=== PATIENT | female | born 1955 | race Two or more races ===

== ENCOUNTER 2024-03-08 10:25 | Emergency (ER) | payer OTHER, MEDICAID ==
[~2024-03-08] VITALS: Ht 157.5 cm; Wt 70.3 kg
[2024-03-08 10:44] VITALS: BP 122/92; RESP 18; O2SAT 96
[2024-03-08] MEDS ORDERED: MORPHINE SULFATE INJ 2 MG/ml SYRG IM ONE (11:30)
[2024-03-08] MEDS ORDERED: ONDANSETRON HCL 4 MG/2 ML VIAL IM ONE (11:30)
[2024-03-08 12:13] VITALS: PULSE 109
--- NOTE | 2024-03-08 12:13 | ED.PDOC ---
History of Present Illness HPI Comments 69 y/o F, with a Hx of metastatic stage IV lung CA, HLD, polypectomy in large and small intestine, and former tobacco use, presents with son for c/o nausea and vomiting and left shoulder pain for the past 3x days, today. Patient endorses on persisting symptoms since initial unprovoked onset. She admits to lilia hale to the ED for same symptoms, yesterday, and endorses on no improvement with Tx administered then. She further informs on completing her most recent chemotherapy and radiation Tx for her CA that has no traveled to her neck and left hip. She denies having any additional symptoms or modifiers at this time. Chief Complaint: Nausea/Vomiting Time Seen by MD: 11:15 Reviewed Notes: Nurses Notes, Medications, Allergies Allergies: Coded Allergies: NO KNOWN ALLERGIES (Unverified , 03/08/24) Information Source: Patient Mode of Arrival: Ambulatory Severity: Moderate Timing: Hours Duration: Since onset Prehospital treatment: None Past Medical History PAST MEDICAL HISTORY: Denies Surgical History: Denies all surgeries MERCHANT MILLER History: Denies all MERCHANT MILLER Hx Family History Family History: Unknown Social History Smoker: Non-Smoker Alcohol: Denies ETOH Use Drugs: Denies Drug Use Lives In: Home Constitutional: denies: chills, diaphoresis, fatigue, fever, malaise, sweats, weakness, others EENTM: denies: blurred vision, double vision, ear bleeding, ear discharge, ear drainage, ear pain, ear ringing, eye pain, eye redness, hearing loss, mouth pain, mouth swelling, nasal discharge, nose bleeding, nose congestion, nose pain, photophobia, tearing, throat pain, throat swelling, voice changes, others Respiratory: denies: cough, hemoptysis, orthopnea, SOB at rest, shortness of breath, SOB with excertion, stridor, wheezing, others Cardiovascular: denies: chest pain, dizzy spells, diaphoresis, Dyspnea on exertion, edema, irregular heart beat, left arm pain, lightheadedness, palpitations, PND, syncope, others Gastrointestinal: reports: nausea, vomiting; denies: abdomen distended, abdominal pain, blood streaked bowels, constipated, diarrhea, dysphagia, difficulty swallowing, hematemesis, melena, poor appetite, poor fluid intake, rectal bleeding, rectal pain, others Genitourinary: denies: abnormal vagina bleeding, burning, dyspareunia, dysuria, flank pain, frequency, hematuria, incontinence, pain, , vagina discharge, urgency, others Neurological: denies: dizziness, fainting, headache, left sided numbness, left sided weakness, numbness, paresthesia, pre-existing deficit, right sided numbness, right sided weakness, seizure, speech problems, tingling, tremors, weakness, others Musculoskeletal: reports: others (left shoulder pain ); denies: back pain, gout, joint pain, joint swelling, muscle pain, muscle stiffness, neck pain Integumetry: denies: bruises, change in color, change in hair/nails, dryness, laceration, lesions, lumps, rash, wounds, others Allergic/Immunocompromised: denies: Difficulty Healing, Frequent Infections, Hives, Itching, others Hematologic/Lymphatic: denies: anemia, blood clots, easy bleeding, easy bruising, swollen glands, others Endocrine: denies: excessive hunger, excessive sweating, excessive thirst, excessive urination, flushing, intolerance to cold, intolerance to heat, unexplained weight gain, unexplained weight loss, others Psychiatric: denies: anxiety, bipolar disorder, depression, hopeless, panic d isorder, schizophrenia, sleepless, suicidal, others All Other Systems: Reviewed and Negative Physical Exam General Appearance: Mild Distress HEENT: Normal ENT Inspection, Pharynx Normal, TMs Normal Neck: Full Range of Motion, Non-Tender, Normal, Normal Inspection Respiratory: Chest Non-Tender, Lungs Clear, No Accessory Muscle Use, No Respiratory Distress, Normal Breath Sounds Cardiovascular: No Edema, No JVD, No Murmur, No Gallop, Normal Peripheral Pulses, Regular Rate/Rhythm Breast Exam: Deferred Gastrointestinal: No Organomegaly, Non Tender, No Pulsatile Mass, Normal Bowel Sounds, Soft Genitalia: Deferred Pelvic: Deferred Rectal: Deferred Extremities: No calf tenderness, Normal capillary refill, Normal inspection, Normal range of motion, Non-tender, No pedal edema Musculoskeletal : Apperance: Normal Neurologic: Alert, district commercial superintendent II-XII nml as Tested, No Motor Deficits, Normal Affect, Normal Mood, No Sensory Deficits Cerebellar Function: Normal Reflexes: Normal Skin: Dry, Normal Color, Warm Lymphatic: No Adenopathy Was a procedure done? Was a procedure done?: No EKG EKG : Pulse Rate (adult): [address]: Normal Cardiac Rhythm: ST Block: None Hypertrophy: None ST: Normal Differential Dx Considerations may include: medication adverse reaction, gastritis, gastroenteritis, viral syndrome, spoiled food, acute abdomen X-Ray, Labs, Meds, VS Vital Signs Date Time Temp Pulse Resp B/P (MAP) Pulse Ox O2 Delivery O2 Flow Rate FiO2 03/08/24 12:13 109 03/08/24 10:50 109 03/08/24 10:44 98.0 97 18 122/92 (102) 96 While in the emergency department's the patient's seems somewhat nauseated. We went ahead and order some lab work as well as medication for the patient but she has eloped from the department's. Time of 1ST Reevaluation: 11:45 Reevaluation 1ST: Unchanged Patient Education/Counseling: Diagnosis, Treatment, Prognosis Family Education/Counseling: Diagnosis, Treatment, Prognosis Departure 1 Departure Time of Disposition: 13:04 Impression: Primary Impression: Chronic pain Qualified Codes: G89.3 - Neoplasm related pain (acute) (chronic) Additional Impressions: Metastatic cancer Qualified Codes: C79.51 - Secondary malignant neoplasm of bone Vomiting Qualified Codes: R11.14 - Bilious vomiting Disposition: 07 LEFT AWOL/ELOPED Condition: Fair Critical Care Note Critical Care Time?: No Stability Stability form required: No Heart Score Heart Score: Heart Score Response (Comments) Value History N/A 0 EKG N/A 0 Age N/A 0 Risk Factors N/A 0 Troponin N/A 0 Total 0 I personally scribed for RODY LAYTON MD ([email or web address]) on 03/08/24 at 12:13. Electronically submitted by Hilario Huang [email or web address]). RODY LAYTON MD Mar 08, 2024 12:13
--- NOTE | 2024-03-09 10:51 | ECG ---
[facility] Test Date: 2024-03-08 Test Time: 10:50:41 Pat Name: ELIAS HOWARD Department: ER Room: Gender: F Global Cto: JOSE CRUZ : 1955 Requested By: RODY LAYTON Order Number: [id number] Reading MD: Mayank Shirley Measurements Intervals Peridot Rate: 109 P: 72 HI: 149 QRS: 57 QRSD: 75 T: 53 QT: 308 QTc: 415 Interpretive Statements Sinus tachycardia Minimal ST depression, diffuse leads Electronically Signed On 03-09-2024 13:09:19 PST by Mayank Shirley Please click the below link to view image of tracing.
== END 2024-03-08 12:43 | disposition left against medical advice (07) ==
LOC: ER 10:25
DX: C76.8 Malignant neoplasm of other specified ill-defined sites (principal); G89.3 Neoplasm related pain (acute) (chronic); C79.89 Secondary malignant neoplasm of other specified sites; R11.10 Vomiting, unspecified
CPT/HCPCS: 93005

== ENCOUNTER → 2024-06-21 | Outpatient (CLI) | payer MEDICAID ==
[2024-06-21 08:00] LABS: Basophils # (auto) 0 10 ^3/uL (0-0.2); Eosinophils # (auto) 0.1 10 ^3/uL (0-0.8); Eosinophils % (auto) 2.1 % (0.0-7.0); Hematocrit 35.6 % (36.0-46.0); Hemoglobin 12.1 g/dL (12.2-16.2); Lymphocytes # (auto) 0.4 10 ^3/uL (0.4-5.4); Lymphocytes % (auto) 11.3 % (10.0-50.0); Mean Corpuscular Hemoglobin 32.1 pg (28.0-32.0); Mean Corpuscular Volume 94.3 fL (80.0-100.0); Monocytes # (auto) 0.3 10 ^3/uL (0-1.3); Monocytes % (auto) 8.3 % (0.0-12.0); Neutrophils # (auto) 2.5 10 ^3/uL (1.6-8.6); Neutrophils % (auto) 77.3 % (37.0-80.0); Platelet Count (auto) 171 10^3/uL (140-450); Red Blood Cells 3.78 10^6/uL (4.0-5.20); Red Cell Distribution Width 14.7 % (11.8-14.3); White Blood Cell 3.2 10^3/uL (4.4-10.8)
[2024-06-21 08:33] LABS: Alanine Aminotransferase 11 U/L (7-40); Albumin 4.5 g/dL (3.2-4.8); Alkaline Phosphatase 89 U/L (46-116); Anion Gap 9 (5-15); BUN/Creatinine Ratio 16.5 (10.0-20.0); Bilirubin, Total 0.5 mg/dL (0.2-1.0); Blood Urea Nitrogen 13 mg/dL (9-23); Calcium 10.3 mg/dL (8.7-10.4); Carbon Dioxide 26 mmol/L (20-31); Potassium 4.4 mmol/L (3.5-5.1); Sodium 143 mmol/L (136-145); Total Protein 6.9 g/dL (5.7-8.2)
[2024-06-21 08:36] LABS: Aspartate Aminotransferase 12 U/L (13-40); Chloride 108 mmol/L (98-107); Glucose 108 mg/dL (74-106)
== END | disposition home or self-care (01) ==
LOC: LAB 07:29
PROVIDERS: ATTEND Student in an Organized Health Care Education/Training Program
DX: C34.11 Malignant neoplasm of upper lobe, right bronchus or lung (principal); G89.3 Neoplasm related pain (acute) (chronic)
CPT/HCPCS: 36415; 80053; 83615; 85025

== ENCOUNTER → 2024-06-25 | Outpatient (CLI) | payer MEDICAID | END | disposition home or self-care (01) | LOC: LAB 12:21 | PROVIDERS: ATTEND Student in an Organized Health Care Education/Training Program | DX: C34.11 Malignant neoplasm of upper lobe, right bronchus or lung (principal); G89.3 Neoplasm related pain (acute) (chronic) | CPT/HCPCS: 87045; 87427 ==

== ENCOUNTER → 2024-07-07 | Outpatient (CLI) | payer MEDICAID | END | disposition home or self-care (01) | LOC: LAB 13:23 | PROVIDERS: ATTEND Student in an Organized Health Care Education/Training Program | DX: C34.11 Malignant neoplasm of upper lobe, right bronchus or lung (principal); G89.3 Neoplasm related pain (acute) (chronic); R19.7 Diarrhea, unspecified | CPT/HCPCS: 87493 ==

== ENCOUNTER 2024-08-02 13:06 | Inpatient (IN) | payer MEDICAID ==
[~2024-08-02] VITALS: Ht 157.5 cm; Wt 72.2 kg
[2024-08-02 13:29] LABS: Urine Bacteria None Seen /hpf (None Seen)
[2024-08-02 13:55] LABS: Urine Blood 1+ /uL (Negative); Urine Clarity Turbid (Clear); Urine Color Yellow (Yellow); Urine Hyaline Cast FEW /lpf (0 - 2); Urine Mucus FEW (None Seen); Urine Protein, UAD TRACE (Negative); Urine Specific Gravity 1.029 (1.001-1.035); Urine Squamous Epithelial Cell MOD /hpf (<5); Urine Urobilinogen 2 mg/dL (Negative); Urine WBC 6 /HPF (0-5)
--- NOTE | 2024-08-02 14:07 | ED.PDOC ---
GI ASSESSMENT HPI Comments 69 y/o F, with PMHx of lung cancer presents to the ED for CC of GI bleed. Patient states, she has been experiencing blood in stool with associated diarrhea and RUQ abdominal pain [id number]. Patient reports, that she has seen her PCP for symptoms and was relayed to follow up with a metal molder; GI appointment set until October 2024. Patient denies hematemesis, fever, chills, or body-aches. No other symptoms or modifying factors present at this time. Chief Complaint: GI Bleed Time Seen by MD: 13:50 Primary Care Provider: none Reviewed Notes: Nurses Notes, Medications, Allergies Allergies: Coded Allergies: NO KNOWN ALLERGIES (Unverified , 03/08/24) Information Source: Patient Mode of Arrival: Ambulatory Timing: Months Duration: Since onset Prehospital treatment: None Quality: None Vomitus: None Stool: Blood Streaked, Watery Severity: Moderate Recent: None Recent Hx of: None Pain Location: RUQ Modifying Factors: Nothing Associated sign and symptoms: Diarrhea, Abdominal Pain, Blood in Stool Past Medical History PAST MEDICAL HISTORY: Cancer Past Medical History (Other): POLYPS Surgical History: Unknown 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: 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 all SOFT TOP INSTALLER Hx Family History Family History: Unknown Social History Smoker: Non-Smoker Alcohol: Denies ETOH Use Drugs: Denies Drug Use Lives In: Home Constitutional: denies: chills, diaphoresis, fatigue, fever, malaise, sweats, weakness, others EENTM: denies: blurred vision, double vision, ear bleeding, ear discharge, ear drainage, ear pain, ear ringing, eye pain, eye redness, hearing loss, mouth pain, mouth swelling, nasal discharge, nose bleeding, nose congestion, nose pain, photophobia, tearing, throat pain, throat swelling, voice changes, others Respiratory: denies: cough, hemoptysis, orthopnea, SOB at rest, shortness of breath, SOB with excertion, stridor, wheezing, others Cardiovascular: denies: chest pain, dizzy spells, diaphoresis, Dyspnea on e xertion, edema, irregular heart beat, left arm pain, lightheadedness, palpitations, PND, syncope, others Gastrointestinal: reports: abdominal pain, blood streaked bowels, diarrhea; denies: abdomen distended, constipated, dysphagia, difficulty swallowing, hematemesis, melena, nausea, poor appetite, poor fluid intake, rectal bleeding, rectal pain, vomiting, others Genitourinary: denies: abnormal vagina bleeding, burning, dyspareunia, dysuria, flank pain, frequency, hematuria, incontinence, pain, , vagina discharge, urgency, others Neurological: denies: dizziness, fainting, headache, left sided numbness, left sided weakness, numbness, paresthesia, pre-existing deficit, right sided numbness, right sided weakness, seizure, speech problems, tingling, tremors, weakness, others Musculoskeletal: denies: back pain, gout, joint pain, joint swelling, muscle pain, muscle stiffness, neck pain, others Integumetry: denies: bruises, change in color, change in hair/nails, dryness, laceration, lesions, lumps, rash, wounds, others Allergic/Immunocompromised: denies: Difficulty Healing, Frequent Infections, Hives, Itching, others Hematologic/Lymphatic: denies: anemia, blood clots, easy bleeding, easy bruising, swollen glands, others Endocrine: denies: excessive hunger, excessive sweating, excessive thirst, excessive urination, flushing, intolerance to cold, intolerance to heat, unexplained weight gain, unexplained weight loss, others Psychiatric: denies: anxiety, bipolar disorder, depression, hopeless, panic disorder, schizophrenia, sleepless, suicidal, others All Other Systems: Reviewed and Negative Physical Exam General Appearance: No Apparent Distress, Normal HEENT: Normal ENT Inspection, Pharynx Normal, TMs Normal Neck: Full Range of Motion, Non-Tender, Normal, Normal Inspection Respiratory: Chest Non-Tender, Lungs Clear, No Accessory Muscle Use, No Respiratory Distress, Normal Breath Sounds Cardiovascular: No Edema, No Murmur, No Gallop, Normal Peripheral Pulses, Regular Rate/Rhythm Breast Exam: Deferred Gastrointestinal: No Organomegaly, No Pulsatile Mass, Normal Bowel Sounds, RUQ, Tenderness Genitalia: Deferred Pelvic: Deferred Rectal: Deferred Extremities: No calf tenderness, Normal capillary refill, Normal inspection, Normal range of motion, Non-tender, No pedal edema Musculoskeletal : Apperance: Normal Neurologic: Alert, sebd teacher II-XII nml as Tested, No Motor Deficits, Normal Affect, Normal Mood, No Sensory Deficits Cerebellar Function: Normal Reflexes: Normal Skin: Dry, Normal Color, Warm Lymphatic: No Adenopathy Was a procedure done? Was a procedure done?: No GI differential Dx Differential Diagnosis: Diverticular disease, Gastritis/PUD, Gastroenteritis, GI hemorrhage, Hepatitis, Inflammatory BD, Ischemic Bowel, Trauma intraabdominal, Electrolyte Imbalance, Hypovolemia, Impaction, Malnutrition, Ischemic Bowel, Other (colitis, malignancy) X-Ray, Labs, Meds, VS Vital Signs Date Time Temp Pulse Resp B/P (MAP) Pulse Ox O2 Delivery O2 Flow Rate FiO2 08/02/24 15:35 98.0 85 16 122/80 (94) 96 98.0 08/02/24 13:21 97.8 100 20 124/83 (97) 95 97.8 Lab Test 08/02/24 14:18 08/02/24 13:16 Range/Units White Blood Count 3.2 L 4.4-10.8 10^3/uL Red Blood Count 4.28 4.0-5.20 10^6/uL Hemoglobin 13.6 12.2-16.2 g/dL Hematocrit 39.9 36.0-46.0 % Mean Corpuscular Volume 93.3 80.0-100.0 fL Mean Corpuscular Hemoglobin 31.7 28.0-32.0 pg Mean Corpuscular Hemoglobin Concent 34.0 32.0-36.0 g/dL Red Cell Distribution Width 14.2 11.8-14.3 % Platelet Count 213 140-450 10^3/uL Mean Platelet Volume 9.1 6.9-10.8 fL Neutrophils (%) (Auto) 67.4 37.0-80.0 % Lymphocytes (%) (Auto) 15.2 10.0-50.0 % Monocytes (%) (Auto) 13.1 H 0.0-12.0 % Eosinophils (%) (Auto) 3.6 0.0-7.0 % Basophils (%) (Auto) 0.7 0.0-2.0 % Neutrophils # (Auto) 2.1 1.6-8.6 10 ^3/uL Lymphocytes # (Auto) 0.5 0.4-5.4 10 ^3/uL Monocytes # (Auto) 0.4 0-1.3 10 ^3/uL Eosinophils # (Auto) 0.1 0-0.8 10 ^3/uL Basophils # (Auto) 0 0-0.2 10 ^3/uL Nucleated Red Blood Cells 0.1 % Sodium Level 140 136-145 mmol/L Potassium Level 4.3 3.5-5.1 mmol/L Chloride Level 108 H 98-107 mmol/L Carbon Dioxide Level 22 20-31 mmol/L Anion Gap 10 5-15 Blood Urea Nitrogen 11 9-23 mg/dL Creatinine 0.90 0.550-1.02 mg/dL Glomerular Filtration Rate Calc 70 >90 mL/min BUN/Creatinine Ratio 12.2 10.0-20.0 Serum Glucose 123 H 74-106 mg/dL Calcium Level 10.0 8.7-10.4 mg/dL Total Bilirubin 0.9 0.2-1.0 mg/dL Aspartate Amino Transferase (AST) 13 13-40 U/L Alanine Aminotransferase (ALT) 10 7-40 U/L Alkaline Phosphatase 96 46-116 U/L Total Protein 7.1 5.7-8.2 g/dL Albumin 4.5 3.2-4.8 g/dL Urine Color Yellow Yellow Urine Clarity Turbid H Clear Urine pH 5.0 5.0-9.0 Urine Specific [place] 1.029 1.001-1.035 Urine Protein Trace H Negative Urine Ketones Trace Negative Urine Blood 1+ H Negative /uL Urine Nitrite Negative Negative Urine Bilirubin Negative Negative Urine Urobilinogen 2 H Negative mg/dL Urine Leukocyte Esterase 1+ Negative /uL Urine RBC 1 0 - 4 /hpf Urine Microscopic WBC 6 H 0-5 /HPF Urine Squamous Epithelial Cells Mod <5 /hpf Urine Calcium Oxalate Crystals Many None Seen Urine Bacteria None seen None Seen /hpf Urine Hyaline Casts Few 0 - 2 /lpf Urine Mucus Few None Seen Urine Glucose Normal Normal mg/dL [place] [id number] Ph: [phone] DIAGNOSTIC IMAGING Diagnostic Imaging Report : [id number] Signed PATIENT: ELIAS HOWARD ACCT: [id number] UNIT: [id number] : 1955 LOC: ER ROOM / BED: / AGE / SEX: 69 / F ADM STATUS: REG ER SERVICE 1223 ORDERING PHYSICIAN: SOULEYMANE FLORES MD PROCEDURE(s): ABPL - CT AB PEL WO CON-NO ORAL OR IV REASON: gib ORDER NUMBER(s): [id number], ACCESSION NUMBER(s): [id number] Exam: CT CT AB PEL WO CON-NO ORAL OR IV History: gib Comparison Study: None Technique: Multidetector spiral CT of the abdomen and pelvis was performed from lung bases to pubic symphysis. Imaging was performed without IV contrast. Axial, coronal and sagittal multiplanar reformats were obtained from the axial data set by the technologist. Radiation dose : Abdomen/Pelvis: CTDIvol 7.85 mGy, DLP 440.92 mGy*cm. Findings: Evaluation of solid organs is limited due to lack of intravenous contrast use. Lung Bases: No acute or significant lung base finding. Normal heart size. No pleural or pericardial effusion. Liver: The liver is normal in size. No focal lesions. Gallbladder and biliary Tree: Gallbladder is surgically absent. Spleen: Unremarkable Pancreas: The pancreas is grossly normal in appearance. Adrenal Glands: Unremarkable Kidneys: Fatty lesion in the right renal pelvis measuring up to 32 mm. No hydronephrosis or nephrolithiasis. Bladder: Grossly unremarkable for degree of distention. Bowel: The stomach is grossly normal in appearance. Postsurgical changes in the right colon. No evidence of obstruction. Wall thickening of the rectosigmoid colon which is underdistended. Some pericolonic stranding in this region. The appendix is not visualized; however, no secondary findings of acute appendicitis identified. Ascites: Absent Lymphadenopathy: No mesenteric, retroperitoneal or periportal lymphadenopathy. Abdominal wall and Mesentery: Fatty stranding in the pelvis as above. Vasculature: The visualized abdominal aorta is normal in size and caliber. Evaluation of abdominal and pelvic vessels is limited due to lack of intravenous contrast. Pelvic Organs: Calcified fibroids in the uterus. Musculoskeletal: No aggressive focal bony lesions, acute fractures or dislocation. IMPRESSION: 1. Wall thickening of the rectosigmoid colon with some adjacent fatty stranding. Findings are nonspecific. Could be related to infectious or inflammatory colitis. Clinical correlation and continued follow-up is recommended. Consider colonoscopy after acute event. 2. Fatty lesion in the right renal pelvis could represent a lipoma. Other differential considerations would include a renal angiomyolipoma. Clinical correlation and continued follow-up is recommended. Radiation optimization: All CT scans at this facility use at least one of these dose optimization techniques: Automated exposure control mA and/or kV adjustment per patient size (includes targeted exams where dose is matched to clinical indication) or iterative reconstruction. HS:Y ATED BY: JOSHUA JOVEL MD DICTATED DATE/TIME: 08/02/241455 SIGNED BY: JOSHUA JOVEL MD SIGNED DATE/TIME: 08/02/241455 CC: Time of 1ST Reevaluation: 14:20 Reevaluation 1ST: Unchanged Patient Education/Counseling: Diagnosis, Treatment Family Education/Counseling: No Family Present Additional Information The following tests were ordered, and results were reviewed by me: UA, CMP, BMP, CT ABD PEL I reviewed and agreed with the following test results read by other providers: CT ABD PEL I discussed treatment and results with medical personnel and: patient Comprehensive systems review obtained and negative except for what is stated in the HPI. Departure 1 Departure Time of Disposition: 19:46 Impression: Primary Impression: Diarrhea Qualified Codes: R19.7 - Diarrhea, unspecified Additional Impression: Rectal bleed Disposition: ADMITTED INPATIENT Admit to: Tele Condition: Stable Discharged With: Self Critical Care Note Critical Care Time?: Yes (55 min-critical care time only) Critical care comment: due to concerns for patient's condition deteriorating, the care required my highest level of attention and readiness to intervene. i assessed the patient's condition, ordered the proper tests and treatments, reassessed for response and reviewed the results. i communicated with medical personnel and formulated a plan of care. total critical care time does not include any procedures Stability Stability form required: No Heart Score Heart Score: Heart Score Response (Comments) Value History N/A 0 EKG N/A 0 Age N/A 0 Risk Factors N/A 0 Troponin N/A 0 Total 0 I personally scribed for SOULEYMANE FLORES MD ([email or web address]) on 08/02/24 at 14:07. Electronically submitted by Kelsi Hills ([employer]). I personally scribed for SOULEYMANE FLORES MD ([employer]) on 08/02/24 at 14:53. Electronically submitted by Kelsi Hills ([email or web address]). I personally scribed for SOULEYMANE FLORES MD ([employer]) on 08/02/24 at 15:13. Electronically submitted by Kelsi iHlls ([email or web address]). SOULEYMANE FLORES MD August 02, 2024 14:07
[2024-08-02 14:45] LABS: Alanine Aminotransferase 10 U/L (7-40); Albumin 4.5 g/dL (3.2-4.8); Alkaline Phosphatase 96 U/L (46-116); Anion Gap 10 (5-15); BUN/Creatinine Ratio 12.2 (10.0-20.0); Blood Urea Nitrogen 11 mg/dL (9-23); Carbon Dioxide 22 mmol/L (20-31); Potassium 4.3 mmol/L (3.5-5.1); Sodium 140 mmol/L (136-145); Total Protein 7.1 g/dL (5.7-8.2)
[2024-08-02 14:46] LABS: Bilirubin, Total 0.9 mg/dL (0.2-1.0)
[2024-08-02 14:47] LABS: Aspartate Aminotransferase 13 U/L (13-40); Chloride 108 mmol/L (98-107); Glucose 123 mg/dL (74-106)
--- NOTE | 2024-08-02 14:58 | DVH ---
Exam: CT CT AB PEL WO CON-NO ORAL OR IV History: gib Comparison Study: None Technique: Multidetector spiral CT of the abdomen and pelvis was performed from lung bases to pubic symphysis. Imaging was performed without IV contrast. Axial, coronal and sagittal multiplanar reform ats were obtained from the axial data set by the technologist. Radiation dose : Abdomen/Pelvis: CTDIvol 7.85 mGy, DLP 440.92 mGy*cm. Findings: Evaluation of solid organs is limited due to lack of intravenous contrast use. Lung Bases: No acute or significant lung base finding. Normal heart size. No pleural or pericardial effusion. Liver: The liver is normal in size. No focal lesions. Gallbladder and biliary Tree: Gallbladder is surgically absent. Spleen: Unremarkable Pancreas: The pancreas is grossly normal in appearance. Adrenal Glands: Unremarkable Kidneys: Fatty lesion in the right renal pelvis measuring up to 32 mm. No hydronephrosis or nephrolit hiasis. Bladder: Grossly unremarkable for degree of distention. Bowel: The stomach is grossly normal in appearance. Postsurgical changes in the right colon. No evide nce of obstruction. Wall thickening of the rectosigmoid colon which is underdistended. Some pericolon ic stranding in this region. The appendix is not visualized; however, no secondary findings of acute appendicitis identified. Ascites: Absent Lymphadenopathy: No mesenteric, retroperitoneal or periportal lymphadenopathy. Abdominal wall and Mesentery: Fatty stranding in the pelvis as above. Vasculature: The visualized abdominal aorta is normal in size and caliber. Evaluation of abdominal a nd pelvic vessels is limited due to lack of intravenous contrast. Pelvic Organs: Calcified fibroids in the uterus. Musculoskeletal: No aggressive focal bony lesions, acute fractures or dislocation. IMPRESSION: 1. Wall thickening of the rectosigmoid colon with some adjacent fatty stranding. Findings are nonspe cific. Could be related to infectious or inflammatory colitis. Clinical correlation and continued fo llow-up is recommended. Consider colonoscopy after acute event. 2. Fatty lesion in the right renal pelvis could represent a lipoma. Other differential considerations would include a renal angiomyolipoma. Clinical correlation and continued follow-up is recommended. Radiation optimization: All CT scans at this facility use at least one of these dose optimization ventura hniques: Automated exposure control mA and/or kV adjustment per patient size (includes targeted exams where dose is matched to clinical indication) or iterative reconstruction. HS:Y
[2024-08-02 15:49] LABS: Basophils # (auto) 0 10 ^3/uL (0-0.2); Basophils % (auto) 0.7 % (0.0-2.0); Eosinophils # (auto) 0.1 10 ^3/uL (0-0.8); Eosinophils % (auto) 3.6 % (0.0-7.0); Hematocrit 39.9 % (36.0-46.0); Hemoglobin 13.6 g/dL (12.2-16.2); Lymphocytes # (auto) 0.5 10 ^3/uL (0.4-5.4); Lymphocytes % (auto) 15.2 % (10.0-50.0); Mean Corpuscular Hemoglobin 31.7 pg (28.0-32.0); Mean Corpuscular Volume 93.3 fL (80.0-100.0); Monocytes # (auto) 0.4 10 ^3/uL (0-1.3); Monocytes % (auto) 13.1 % (0.0-12.0); Neutrophils # (auto) 2.1 10 ^3/uL (1.6-8.6); Neutrophils % (auto) 67.4 % (37.0-80.0); Nucleated Red Blood Cells % 0.1 %; Platelet Count (auto) 213 10^3/uL (140-450); Red Blood Cells 4.28 10^6/uL (4.0-5.20); Red Cell Distribution Width 14.2 % (11.8-14.3); White Blood Cell 3.2 10^3/uL (4.4-10.8)
[2024-08-02] MEDS ORDERED: cefTRIAXone SOD 500 MG VL IM ONE (16:15)
--- NOTE | 2024-08-02 16:29 | DVHHP2 ---
Allergies: Coded Allergies: NO KNOWN ALLERGIES (Unverified , 03/08/24) Vital Signs Vital Signs Date Time Temp Pulse Resp B/P (MAP) Pulse Ox O2 Delivery O2 Flow Rate FiO2 08/02/24 15:35 98.0 85 16 122/80 (94) 96 98.0 Results Labs Test 08/02/24 14:18 08/02/24 13:16 Range/Units White Blood Count 3.2 L 4.4-10.8 10^3/uL Red Blood Count 4.28 4.0-5.20 10^6/uL Hemoglobin 13.6 12.2-16.2 g/dL Hematocrit 39.9 36.0-46.0 % Mean Corpuscular Volume 93.3 80.0-100.0 fL Mean Corpuscular Hemoglobin 31.7 28.0-32.0 pg Mean Corpuscular Hemoglobin Concent 34.0 32.0-36.0 g/dL Red Cell Distribution Width 14.2 11.8-14.3 % Platelet Count 213 140-450 10^3/uL Mean Platelet Volume 9.1 6.9-10.8 fL Neutrophils (%) (Auto) 67.4 37.0-80.0 % Lymphocytes (%) (Auto) 15.2 10.0-50.0 % Monocytes (%) (Auto) 13.1 H 0.0-12.0 % Eosinophils (%) (Auto) 3.6 0.0-7.0 % Basophils (%) (Auto) 0.7 0.0-2.0 % Neutrophils # (Auto) 2.1 1.6-8.6 10 ^3/uL Lymphocytes # (Auto) 0.5 0.4-5.4 10 ^3/uL Monocytes # (Auto) 0.4 0-1.3 10 ^3/uL Eosinophils # (Auto) 0.1 0-0.8 10 ^3/uL Basophils # (Auto) 0 0-0.2 10 ^3/uL Nucleated Red Blood Cells 0.1 % Sodium Level 140 136-145 mmol/L Potassium Level 4.3 3.5-5.1 mmol/L Chloride Level 108 H 98-107 mmol/L Carbon Dioxide Level 22 20-31 mmol/L Anion Gap 10 5-15 Blood Urea Nitrogen 11 9-23 mg/dL Creatinine 0.90 0.550-1.02 mg/dL Glomerular Filtration Rate Calc 70 >90 mL/min BUN/Creatinine Ratio 12.2 10.0-20.0 Serum Glucose 123 H 74-106 mg/dL Calcium Level 10.0 8.7-10.4 mg/dL Total Bilirubin 0.9 0.2-1.0 mg/dL Aspartate Amino Transferase (AST) 13 13-40 U/L Alanine Aminotransferase (ALT) 10 7-40 U/L Alkaline Phosphatase 96 46-116 U/L Total Protein 7.1 5.7-8.2 g/dL Albumin 4.5 3.2-4.8 g/dL Urine Color Yellow Yellow Urine Clarity Turbid H Clear Urine pH 5.0 5.0-9.0 Urine Specific [place] 1.029 1.001-1.035 Urine Protein Trace H Negative Urine Ketones Trace Negative Urine Blood 1+ H Negative /uL Urine Nitrite Negative Negative Urine Bilirubin Negative Negative Urine Urobilinogen 2 H Negative mg/dL Urine Leukocyte Esterase 1+ Negative /uL Urine RBC 1 0 - 4 /hpf Urine Microscopic WBC 6 H 0-5 /HPF Urine Squamous Epithelial Cells Mod <5 /hpf Urine Calcium Oxalate Crystals Many None Seen Urine Bacteria None seen None Seen /hpf Urine Hyaline Casts Few 0 - 2 /lpf Urine Mucus Few None Seen Urine Glucose Normal Normal mg/dL ULICES LESTER NP August 02, 2024 16:29
[2024-08-02] MEDS ORDERED: MORPHINE SULFATE INJ 2 MG/ml SYRG IV PRN ×2 (16:30)
[2024-08-02] MEDS ORDERED: HYDROcodone-ACET 5/325MG TAB PO PRN (16:30)
[2024-08-02] MEDS ORDERED: NITROGLYCERIN 0.4 MG SL TAB SL PRN (16:30)
[2024-08-02] MEDS ORDERED: ACETAMINOPHEN 325 MG TAB PO PRN (16:30)
[2024-08-02] MEDS ORDERED: cefTRIAXone SOD 1,000 MG VL IM ONE (16:30)
[2024-08-02] MEDS: levoFLOXacin 500MG 100 ML IV SCH (18:10)
[2024-08-02] MEDS: SODIUM CHLORIDE 0.9% 1,000 ML IV SCH (18:23)
[2024-08-02] MEDS: cefTRIAXone 1GM/50ML D5W 50 ML IV ONE (20:01)
[2024-08-02] MEDS: metroNIDAZOLE 500MG/100ML 100 ML IV SCH (20:29)
[2024-08-03 06:25] LABS: Basophils # (auto) 0 10 ^3/uL (0-0.2); Basophils % (auto) 0.7 % (0.0-2.0); Eosinophils # (auto) 0.1 10 ^3/uL (0-0.8); Eosinophils % (auto) 3.2 % (0.0-7.0); Hemoglobin 12.1 g/dL (12.2-16.2); Lymphocytes # (auto) 0.3 10 ^3/uL (0.4-5.4); Lymphocytes % (auto) 8.7 % (10.0-50.0); Mean Corpuscular Hemoglobin 31.3 pg (28.0-32.0); Mean Corpuscular Hgb Conc. 33.5 g/dL (32.0-36.0); Mean Corpuscular Volume 93.5 fL (80.0-100.0); Monocytes # (auto) 0.4 10 ^3/uL (0-1.3); Monocytes % (auto) 12.5 % (0.0-12.0); Neutrophils # (auto) 2.2 10 ^3/uL (1.6-8.6); Neutrophils % (auto) 74.9 % (37.0-80.0); Nucleated Red Blood Cells % 0.1 %; Platelet Count (auto) 163 10^3/uL (140-450); Red Blood Cells 3.85 10^6/uL (4.0-5.20); Red Cell Distribution Width 14.4 % (11.8-14.3)
[2024-08-03 06:49] LABS: Alkaline Phosphatase 72 U/L (46-116); Anion Gap 10 (5-15); BUN/Creatinine Ratio 14.7 (10.0-20.0); Bilirubin, Total 1.1 mg/dL (0.2-1.0); Blood Urea Nitrogen 10 mg/dL (9-23); Calcium 9.1 mg/dL (8.7-10.4); Carbon Dioxide 23 mmol/L (20-31); Glucose 103 mg/dL (74-106); Potassium 4.2 mmol/L (3.5-5.1); Sodium 141 mmol/L (136-145); Total Protein 6.2 g/dL (5.7-8.2)
[2024-08-03 06:55] LABS: Alanine Aminotransferase < 9 U/L (7-40); Aspartate Aminotransferase 11 U/L (13-40); Chloride 108 mmol/L (98-107)
--- NOTE | 2024-08-03 11:50 | DVHHP2 ---
Review of Systems Allergies: Coded Allergies: NO KNOWN ALLERGIES (Unverified , 03/08/24) Medications Current Medications Medications Dose Ordered Sig/Den Route Start Time Stop Time Status Last Admin Dose Admin Sodium Chloride 1,000 ml @ 120 mls/hr Q8H20M IV 08/02/24 16:30 08/03/24 09:10 120 MLS/HR Acetaminophen/ Hydrocodone Bitart 1 tab Q4HP PRN PO 08/02/24 16:30 Acetaminophen 650 mg Q6HP PRN PO 08/02/24 16:30 Morphine Sulfate 2 mg Q4HPRN PRN IV 08/02/24 16:30 Nitroglycerin 0.4 mg Q5MINP PRN SL 08/02/24 16:30 Morphine Sulfate 2 mg Q30M PRN IV 08/02/24 16:30 Metronidazole 100 ml @ 100 mls/hr Q8HR@0200,1000,1800 IV 08/02/24 18:00 08/03/24 10:12 100 MLS/HR Levofloxacin/ Dextrose 100 ml @ 100 mls/hr DAILY IV 08/02/24 16:30 08/02/24 18:10 100 MLS/HR Exam Vital Signs Vital Signs Date Time Temp Pulse Resp B/P (MAP) Pulse Ox O2 Delivery O2 Flow Rate FiO2 08/03/24 08:00 97.8 90 13 113/59 (77) 98 97.8 08/03/24 07:30 Room Air* 0 21 Labs/Xrays Labs Test 08/03/24 04:55 08/02/24 13:16 Range/Units White Blood Count 3.0 L 4.4-10.8 10^3/uL Red Blood Count 3.85 L 4.0-5.20 10^6/uL Hemoglobin 12.1 L 12.2-16.2 g/dL Hematocrit 36.0 36.0-46.0 % Mean Corpuscular Volume 93.5 80.0-100.0 fL Mean Corpuscular Hemoglobin 31.3 28.0-32.0 pg Mean Corpuscular Hemoglobin Concent 33.5 32.0-36.0 g/dL Red Cell Distribution Width 14.4 H 11.8-14.3 % Platelet Count 163 140-450 10^3/uL Mean Platelet Volume 9.0 6.9-10.8 fL Neutrophils (%) (Auto) 74.9 37.0-80.0 % Lymphocytes (%) (Auto) 8.7 L 10.0-50.0 % Monocytes (%) (Auto) 12.5 H 0.0-12.0 % Eosinophils (%) (Auto) 3.2 0.0-7.0 % Basophils (%) (Auto) 0.7 0.0-2.0 % Neutrophils # (Auto) 2.2 1.6-8.6 10 ^3/uL Lymphocytes # (Auto) 0.3 L 0.4-5.4 10 ^3/uL Monocytes # (Auto) 0.4 0-1.3 10 ^3/uL Eosinophils # (Auto) 0.1 0-0.8 10 ^3/uL Basophils # (Auto) 0 0-0.2 10 ^3/uL Nucleated Red Blood Cells 0.1 % Sodium Level 141 136-145 mmol/L Potassium Level 4.2 3.5-5.1 mmol/L Chloride Level 108 H 98-107 mmol/L Carbon Dioxide Level 23 20-31 mmol/L Anion Gap 10 5-15 Blood Urea Nitrogen 10 9-23 mg/dL Creatinine 0.68 0.550-1.02 mg/dL Glomerular Filtration Rate Calc 95 >90 mL/min BUN/Creatinine Ratio 14.7 10.0-20.0 Serum Glucose 103 74-106 mg/dL Calcium Level 9.1 8.7-10.4 mg/dL Total Bilirubin 1.1 H 0.2-1.0 mg/dL Aspartate Amino Transferase (AST) 11 L 13-40 U/L Alanine Aminotransferase (ALT) < 9 7-40 U/L Alkaline Phosphatase 72 46-116 U/L Total Protein 6.2 5.7-8.2 g/dL Albumin 4.0 3.2-4.8 g/dL Urine Color Yellow Yellow Urine Clarity Turbid H Clear Urine pH 5.0 5.0-9.0 Urine Specific [place] 1.029 1.001-1.035 Urine Protein Trace H Negative Urine Ketones Trace Negative Urine Blood 1+ H Negative /uL Urine Nitrite Negative Negative Urine Bilirubin Negative Negative Urine Urobilinogen 2 H Negative mg/dL Urine Leukocyte Esterase 1+ Negative /uL Urine RBC 1 0 - 4 /hpf Urine Microscopic WBC 6 H 0-5 /HPF Urine Squamous Epithelial Cells Mod <5 /hpf Urine Calcium Oxalate Crystals Many None Seen Urine Bacteria None seen None Seen /hpf Urine Hyaline Casts Few 0 - 2 /lpf Urine Mucus Few None Seen Urine Glucose Normal Normal mg/dL Assessment/Plan Assessment/Plan see dictated note Plan discussed with: Patient Date of Service: August 03, 2024 Billing Provider: OSWALDO IRIZARRY MD Common Visit Codes: [id number] INP/OBS CARE (HIGH) Secondary Visit Codes: [id number] CARE PLAN 30 MINUTES OSWALDO IRIZARRY MD August 03, 2024 11:50
--- NOTE | 2024-08-03 12:01 | DVHHP ---
ADMIT DATE: 08/03/2024 HISTORY OF PRESENT ILLNESS: The patient is a 69-year-old lady who came in with history of increasing diarrhea that has been going on for several weeks. More recently, however, the patient has noticed blood in the stool. She denies any abdominal pain. No history of fever. No nausea or vomiting. No dizziness or syncope. REVIEW OF SYSTEMS: Review of rest of systems otherwise currently negative. PAST MEDICAL HISTORY: Significant for surgery on the left foot with status post pin placement as well as the patient was on antibiotics at that time. She also has history of stage IV lung cancer. MEDICATIONS: She takes chemo for the lung cancer, which she is currently on hold. SOCIAL HISTORY: Quit smoking and lives at home with her . FAMILY HISTORY: Negative. PHYSICAL EXAMINATION: GENERAL: The patient is awake, alert. VITAL SIGNS: Temperature of 98.7, pulse 90 per minute, blood pressure 131/66. SHEENT: Unremarkable. NECK: There is no JVD. No pedal edema. LUNGS: Equal bilaterally. No added sounds. CARDIOVASCULAR SYSTEM: S1 and S2 is regular without murmurs. ABDOMEN: Soft. There is no organomegaly. NEUROLOGIC: Nonfocal. MUSCULOSKELETAL: The left foot has limited range of motion. ASSESSMENT AND PLAN: * Diarrhea with GI bleeding. The patient will have stool studies checked as well as a GI eval. * History of stage IV lung cancer. * Obesity. * Status post left foot surgery. ADVANCED CARE PLANNING: The patient is a FULL CODE-Time spent was 18 minutes. MD OSMIN Alvarez/DUY TID: [id number] RECEIPT: [id number] [facility]
--- NOTE | 2024-08-03 12:53 | DVH ---
Clinical History: Pain and swelling Comparison: None Technique: Duplex Doppler evaluation of the deep venous system of the left lower extremity from the common femo ral vein to the popliteal vein including color Doppler and spectral/pulsed waveform analysis was perf ormed. Findings: The common femoral vein demonstrates appropriate compressibility and waveform variability . There is compressibility/patency of the great saphenous vein at the proximal thigh . The femoral vein demonstrates appropriate compressibility and waveform variability . The deep femoral vein demonstrates appropriate compressibility and waveform variability . The popliteal vein demonstrates appropriate compressibility and waveform variability . There is normal compressibility at the tibioperoneal trunk. Impression: No left deep venous thrombosis. If clinical concern/symptoms persist or worsen, short-interval follow-up study is suggested.
--- NOTE | 2024-08-03 13:34 | DVH ---
INDICATION: lung cancer TECHNIQUE: Frontal view of the chest. COMPARISON: None FINDINGS: . The heart and mediastinal contours are grossly unremarkable. There is no evidence of pleural disea se. The lungs are clear. The bony structures of the chest are intact without fracture. IMPRESSION: 1. No evidence of acute disease.
[2024-08-03] MEDS: SODIUM CHLORIDE 0.9% 1,000 ML IV SCH (13:39)
--- NOTE | 2024-08-03 17:02 | DVHINCON2 ---
Date of service: August 03, [address] Balbuena Reason for Consultation Diarrhea and rectal bleeding History of Present Illness 69 y/o F, with PMHx of lung cancer presents to the ED for CC of GI bleed. Patient states, she has been experiencing blood in stool with associated diarrhe a and RUQ abdominal pain [id number]. Patient reports, that she has seen her PCP for symptoms and was relayed to follow up with a truck cleaner; GI appointment set until October 2024. Patient denies hematemesis, fever, chills, or body-aches. No other symptoms or modifying factors present at this time. Patient has not had a recent colonoscopy in our institution Past Medical History stage IV lung CA, HLD, polypectomy in large and small intestine, and former tobacco use, Past Surgical History Bowel resection Allergies: Coded Allergies: NO KNOWN ALLERGIES (Unverified , 03/08/24) Current Medications Current Medications Medications (Trade) Dose Ordered Sig/Den Route PRN Reason Start Time Stop Time Status Last Admin Metronidazole 100 ml @ 100 mls/hr Q8HR@0200,1000,1800 IV 08/02/24 18:00 08/03/24 10:12 Sodium Chloride 1,000 ml @ 100 mls/hr Q10H IV 08/03/24 12:00 08/03/24 13:39 Saccharomyces Boulardii (Florastor) 250 mg DAILY PO 08/04/24 10:00 Vital Signs Vital Signs Date Time Temp Pulse Resp B/P (MAP) Pulse Ox O2 Delivery O2 Flow Rate FiO2 08/03/24 14:00 79 15 118/70 (86) 79 08/03/24 12:10 97.0 97.0 08/03/24 07:30 Room Air* 0 21 Physical Exam GENERAL: The patient is awake, alert. No acute distress VITAL SIGNS: Temperature of 98.7, pulse 90 per minute, blood pressure 131/66. HEENT: Pupils equal and react to light, extraocular movements intact NECK: There is no JVD. No pedal edema. LUNGS: Equal bilaterally. No added sounds. CARDIOVASCULAR SYSTEM: S1 and S2 is regular without murmurs. ABDOMEN: Soft. There is no organomegaly. NEUROLOGIC: Nonfocal. MUSCULOSKELETAL: The left foot has limited range of motion. Labs/Diagnostic Data Labs Test 08/03/24 04:55 08/02/24 13:16 Range/Units White Blood Count 3.0 L 4.4-10.8 10^3/uL Red Blood Count 3.85 L 4.0-5.20 10^6/uL Hemoglobin 12.1 L 12.2-16.2 g/dL Hematocrit 36.0 36.0-46.0 % Mean Corpuscular Volume 93.5 80.0-100.0 fL Mean Corpuscular Hemoglobin 31.3 28.0-32.0 pg Mean Corpuscular Hemoglobin Concent 33.5 32.0-36.0 g/dL Red Cell Distribution Width 14.4 H 11.8-14.3 % Platelet Count 163 140-450 10^3/uL Mean Platelet Volume 9.0 6.9-10.8 fL Neutrophils (%) (Auto) 74.9 37.0-80.0 % Lymphocytes (%) (Auto) 8.7 L 10.0-50.0 % Monocytes (%) (Auto) 12.5 H 0.0-12.0 % Eosinophils (%) (Auto) 3.2 0.0-7.0 % Basophils (%) (Auto) 0.7 0.0-2.0 % Neutrophils # (Auto) 2.2 1.6-8.6 10 ^3/uL Lymphocytes # (Auto) 0.3 L 0.4-5.4 10 ^3/uL Monocytes # (Auto) 0.4 0-1.3 10 ^3/uL Eosinophils # (Auto) 0.1 0-0.8 10 ^3/uL Basophils # (Auto) 0 0-0.2 10 ^3/uL Nucleated Red Blood Cells 0.1 % Sodium Level 141 136-145 mmol/L Potassium Level 4.2 3.5-5.1 mmol/L Chloride Level 108 H 98-107 mmol/L Carbon Dioxide Level 23 20-31 mmol/L Anion Gap 10 5-15 Blood Urea Nitrogen 10 9-23 mg/dL Creatinine 0.68 0.550-1.02 mg/dL Glomerular Filtration Rate Calc 95 >90 mL/min BUN/Creatinine Ratio 14.7 10.0-20.0 Serum Glucose 103 74-106 mg/dL Calcium Level 9.1 8.7-10.4 mg/dL Total Bilirubin 1.1 H 0.2-1.0 mg/dL Aspartate Amino Transferase (AST) 11 L 13-40 U/L Alanine Aminotransferase (ALT) < 9 7-40 U/L Alkaline Phosphatase 72 46-116 U/L Total Protein 6.2 5.7-8.2 g/dL Albumin 4.0 3.2-4.8 g/dL Urine Color Yellow Yellow Urine Clarity Turbid H Clear Urine pH 5.0 5.0-9.0 Urine Specific [place] 1.029 1.001-1.035 Urine Protein Trace H Negative Urine Ketones Trace Negative Urine Blood 1+ H Negative /uL Urine Nitrite Negative Negative Urine Bilirubin Negative Negative Urine Urobilinogen 2 H Negative mg/dL Urine Leukocyte Esterase 1+ Negative /uL Urine RBC 1 0 - 4 /hpf Urine Microscopic WBC 6 H 0-5 /HPF Urine Squamous Epithelial Cells Mod <5 /hpf Urine Calcium Oxalate Crystals Many None Seen Urine Bacteria None seen None Seen /hpf Urine Hyaline Casts Few 0 - 2 /lpf Urine Mucus Few None Seen Urine Glucose Normal Normal mg/dL CT SCAN ABD PELVIS IMPRESSION: 1. Wall thickening of the rectosigmoid colon with some adjacent fatty stranding. Findings are nonspecific. Could be related to infectious or inflammatory colitis. Clinical correlation and continued follow-up is recommended. Consider colonoscopy after acute event. 2. Fatty lesion in the right renal pelvis could represent a lipoma. Other differential considerations would include a renal angiomyolipoma. Clinical correlation and continued follow-up is recommended. Problems(with codes): (1) Rectal bleed (2) Diarrhea (3) Metastatic cancer (4) UTI (urinary tract infection) (5) Chronic pain Plan/Recommendation Plan IV fluid hydration Clear liquid diet advance as tolerated to brat diet Stool for occult blood WBC bacterial culture C diff and ova and parasites Start her on IV Flagyl and Further workup pending results of the above and patient's clinical response Plan discussed with: Other (Dr Balbuena) SADIQ BOONE MD August 03, 2024 17:02
[2024-08-03 19:20] VITALS: PULSE 70; O2SAT 95
[2024-08-03 23:49] VITALS: BP 125/66; PULSE 76; RESP 16; TEMP 96.3; O2SAT 98
[2024-08-04] VITALS (7 sets, daily range): BP systolic 110–139; BP diastolic 66–85; PULSE 72–85; RESP 16–18; TEMP 96.3–98.3; O2SAT 95–99
[2024-08-04] MEDS ORDERED: FLUO1TAB12 PO (04:21)
[2024-08-04 05:39] LABS: Basophils # (auto) 0 10 ^3/uL (0-0.2); Eosinophils # (auto) 0.1 10 ^3/uL (0-0.8); Hematocrit 34.7 % (36.0-46.0); Lymphocytes # (auto) 0.2 10 ^3/uL (0.4-5.4); Monocytes # (auto) 0.3 10 ^3/uL (0-1.3); Potassium 4.3 mmol/L (3.5-5.1); Red Blood Cells 3.77 10^6/uL (4.0-5.20); Sodium 142 mmol/L (136-145)
[2024-08-04 05:40] LABS: Anion Gap 9 (5-15); Calcium 8.8 mg/dL (8.7-10.4); Carbon Dioxide 24 mmol/L (20-31)
[2024-08-04 05:41] LABS: Basophils % (auto) 1.2 % (0.0-2.0); Eosinophils % (auto) 6.5 % (0.0-7.0); Hemoglobin 11.7 g/dL (12.2-16.2); Lymphocytes % (auto) 13.9 % (10.0-50.0); Mean Corpuscular Hemoglobin 31.1 pg (28.0-32.0); Mean Corpuscular Hgb Conc. 33.8 g/dL (32.0-36.0); Monocytes % (auto) 16.8 % (0.0-12.0); Neutrophils % (auto) 61.6 % (37.0-80.0); Nucleated Red Blood Cells % 0.2 %; Platelet Count (auto) 150 10^3/uL (140-450); Red Cell Distribution Width 14.1 % (11.8-14.3)
[2024-08-04 05:45] LABS: Glucose 102 mg/dL (74-106)
[2024-08-04 05:46] LABS: Magnesium 2.1 mg/dL (1.6-2.6)
[2024-08-04 05:47] LABS: White Blood Cell 1.6 10^3/uL (4.4-10.8)
[2024-08-04 05:53] LABS: INR 1.03 (0.9-1.15); Partial Thromboplastin Time 30.8 SEC (24.5-34.5); Prothrombin Time 10.9 sec (9.3-11.8)
[2024-08-04 05:54] LABS: BUN/Creatinine Ratio 6.9 (10.0-20.0); Blood Urea Nitrogen < 5 mg/dL (9-23); Chloride 109 mmol/L (98-107)
[2024-08-04 07:00] LABS: Platelet Estimate Adequate
[2024-08-04] MEDS: FLORASTOR (S. BOULARDII) 250 MG CAP PO SCH (09:29)
--- NOTE | 2024-08-04 10:59 | DVHPN2 ---
Progress Note Date Seen: August 04, 2024 Medical Necessity Reason Pt with a Central, PICC or Fol: No Subjective Patient reports: No new complaints Review of Systems: HEENT:Normal, CVS:Normal, RESPIRATORY:Normal, GI:Normal, :Normal, MSK:Normal, NEURO:Normal Objective vital signs Vital Sign Date Time Temp Pulse Resp B/P (MAP) Pulse Ox O2 Delivery O2 Flow Rate FiO2 08/04/24 08:40 98.0 72 16 136/85 (102) 97 98.0 08/04/24 08:00 Room Air* 0 21 Total Intake and Output 08/03/24 08/03/24 08/04/24 15:00 23:00 07:00 Intake Total 700 ml 900 ml 1100 ml Balance 700 ml 900 ml 1100 ml medications Current Medications Medications Dose Ordered Sig/Den Route Start Time Stop Time Status Last Admin Dose Admin Acetaminophen/ Hydrocodone Bitart 1 tab Q4HP PRN PO 08/02/24 16:30 Acetaminophen 650 mg Q6HP PRN PO 08/02/24 16:30 Morphine Sulfate 2 mg Q4HPRN PRN IV 08/02/24 16:30 Nitroglycerin 0.4 mg Q5MINP PRN SL 08/02/24 16:30 Morphine Sulfate 2 mg Q30M PRN IV 08/02/24 16:30 Metronidazole 100 ml @ 100 mls/hr Q8HR@0200,1000,1800 IV 08/02/24 18:00 08/04/24 09:30 100 MLS/HR Sodium Chloride 1,000 ml @ 100 mls/hr Q10H IV 08/03/24 12:00 08/04/24 02:50 100 MLS/HR Saccharomyces Boulardii 250 mg DAILY PO 08/04/24 10:00 08/04/24 09:29 250 MG Examination: GENERAL:Normal, HEENT:Normal, NECK:Normal, LUNGS:Normal, CVS:Normal, ABDOMEN:Normal, MSK:Normal, SKIN:Normal, NEURO:Normal, :Normal laboratory and microbiology Laboratory Tests 08/04/24 05:04 Test 08/04/24 05:04 Range/Units Serum Glucose 102 74-106 mg/dL Microbiology Date/Time Source Procedure Growth Status 08/03/24 13:30 Stool Stool Culture - Preliminary Resulted 08/03/24 13:30 Stool Shiga Toxin I & II Pending Resulted 08/03/24 13:30 Stool Clostridium difficile Toxin Assay Pending Resulted Problem List/Assessment/Plan Problem List/Assessment/Plan * Diarrhea with GI bleeding. The patient will have stool studies checked as well as a GI eval. * leukopenia: repeat * depression * History of stage IV lung cancer: chemo med on hold * Obesity. * Status post left foot surgery. advance care planning- full code- time spent 18 mins Plan discussed with: Patient My Orders My Orders Orders - OSWALDO IRIZARRY MD Procedure Category Date Status Time Sodium Chloride 0.9% PHA 08/03/24 In Process 12:00 Florastor (S. PHA 08/04/24 In Process Boulardii) (Florastor) 10:00 Stool Bacterial ALIYAH 08/03/24 In Process Culture 11:46 Clostridium Difficile ALIYAH 08/03/24 In Process Toxin 11:46 Chest Portable XY 08/03/24 Resulted 11:46 Lt Lower Dvt US 08/03/24 Resulted 11:51 Fluoxetine Capsule PHA 08/05/24 Transmitted (Prozac Capsule) 10:00 Fluoxetine Capsule PHA 08/04/24 Transmitted (Prozac Capsule) 11:00 Full Liq Diet DIET 08/04/24 Transmitted Lunch Date of Service: August 04, 2024 Billing Provider: OSWALDO IRIZARRY MD Common Visit Codes: [id number] INP/OBS CARE(HIGH) Secondary Visit Codes: [id number] CARE PLAN 30 MINUTES OSWALDO IRIZARRY MD August 04, 2024 10:59
[2024-08-04] MEDS: FLUoxetine HCL 20 MG CAP PO ONE (12:15)
[2024-08-04] MEDS: VANCOMYCIN HCL 125 MG CAP PO SCH (18:40)
--- NOTE | 2024-08-04 21:24 | DVHPN2 ---
Progress Note - Dictate Date Seen: August 04, 2024 Medical Necessity Reason Pt with a Central, PICC or Fol: No Subjective Patient seen at bedside resting comfortably Two bowel movements were recorded today; no bleeding reported today Patient showed me pictures of loose watery stool mixed with some blood Her stool for C diff came back positive and patient has been started on oral vancomycin and probiotics Patient would like to advance her diet as the liquid diet causes more diarrhea Patient stated she stopped her chemotherapy in May after her ankle surgery, she may have been on antibiotics at that time Because of ongoing diarrhea oncologist had referred her to writer technical publications Dr. Ornelas However because of rectal bleeding the patient presented to the ER Patient was diagnosed with a precancerous polyp apparently in the cecum by Dr Ornelas in [id number] Patient underwent resection of the cecum and possible 2 inches of her small bowel and colon in [address] Novak She has not had a colonoscopy since then vital signs Vital Sign Date Time Temp Pulse Resp B/P (MAP) Pulse Ox O2 Delivery O2 Flow Rate FiO2 08/04/24 16:10 97.4 79 16 121/71 (88) 98 97.4 08/04/24 08:00 Room Air* 0 21 Total Intake and Output 08/03/24 08/03/24 08/04/24 15:00 23:00 07:00 Intake Total 700 ml 900 ml 1100 ml Balance 700 ml 900 ml 1100 ml medications Current Medications Medications Dose Ordered Sig/Den Route Start Time Stop Time Status Last Admin Dose Admin Acetaminophen/ Hydrocodone Bitart 1 tab Q4HP PRN PO 08/02/24 16:30 Acetaminophen 650 mg Q6HP PRN PO 08/02/24 16:30 Morphine Sulfate 2 mg Q4HPRN PRN IV 08/02/24 16:30 Nitroglycerin 0.4 mg Q5MINP PRN SL 08/02/24 16:30 Morphine Sulfate 2 mg Q30M PRN IV 08/02/24 16:30 Metronidazole 100 ml @ 100 mls/hr Q8HR@0200,1000,1800 IV 08/02/24 18:00 08/04/24 18:40 100 MLS/HR Sodium Chloride 1,000 ml @ 100 mls/hr Q10H IV 08/03/24 12:00 08/04/24 18:45 100 MLS/HR Saccharomyces Boulardii 250 mg DAILY PO 08/04/24 10:00 08/04/24 09:29 250 MG Fluoxetine HCl 20 mg DAILY PO 08/05/24 10:00 Vancomycin HCl 125 mg QID PO 08/04/24 18:00 08/04/24 18:40 125 MG objective GENERAL: The patient is awake, alert. No acute distress VITAL SIGNS: Temperature of 98.7, pulse 90 per minute, blood pressure 131/66. HEENT: Pupils equal and react to light, extraocular movements intact NECK: There is no JVD. No pedal edema. LUNGS: Equal bilaterally. No added sounds. CARDIOVASCULAR SYSTEM: S1 and S2 is regular without murmurs. ABDOMEN: Soft. There is no organomegaly. NEUROLOGIC: Nonfocal. laboratory and microbiology Laboratory Tests 08/04/24 05:04 Test 08/04/24 05:04 Range/Units Serum Glucose 102 74-106 mg/dL Problems(with codes): (1) Adenomatous polyp of cecum (2) C. difficile diarrhea (3) UTI (urinary tract infection) (4) Metastatic cancer (5) Rectal bleed (6) Diarrhea (7) Vomiting (8) Chronic pain Prognosis Plan Advance to soft mechanical diet and then regular diet if tolerated Continue vancomycin 125 mg p.o. q.6 hours Continue Florastor Yogurt with her meals Outpatient follow up with GI to arrange colonoscopy after her C diff clears Plan discussed with: Patient, Other (nurse louisa) SADIQ BOONE MD August 04, 2024 21:24
[2024-08-05 01:00] VITALS: BP 130/87; PULSE 82; RESP 20; TEMP 98.1; O2SAT 95
[2024-08-05 05:00] VITALS: BP 122/66; PULSE 84; RESP 20; TEMP 98.2; O2SAT 95
[2024-08-05 07:39] LABS: Mean Corpuscular Hemoglobin 31.5 pg (28.0-32.0); Red Cell Distribution Width 13.8 % (11.8-14.3)
[2024-08-05 07:43] LABS: Hematocrit 35.8 % (36.0-46.0); Hemoglobin 12.2 g/dL (12.2-16.2); Mean Corpuscular Volume 92.5 fL (80.0-100.0); Platelet Count (auto) 153 10^3/uL (140-450); Red Blood Cells 3.87 10^6/uL (4.0-5.20)
[2024-08-05 08:01] LABS: White Blood Cell 1.6 10^3/uL (4.4-10.8)
[2024-08-05 08:02] LABS: Basophils % (manual) 0 (0.0-2.0); Blast Cells 0; Metamyelocytes % 0; Myelocytes % 0; Promyelocytes % 0; Reactive Lymphocytes 0
[2024-08-05 09:19] VITALS: BP 111/69; PULSE 79; RESP 14; TEMP 98.3; O2SAT 96
[2024-08-05 09:24] LABS: Band Neutrophils % (manual) 5; Eosinophils % (manual) 7 (0-7); Lymphocytes % (manual) 13 (10.0-50.0); Monocytes % (manual) 13 (0-12); Platelet Estimate Adequate
[2024-08-05] MEDS: FLUoxetine HCL 20 MG CAP PO SCH (09:35)
--- NOTE | 2024-08-05 10:13 | DVHPN2 ---
Progress Note Date Seen: August 05, 2024 Medical Necessity Reason Pt with a Central, PICC or Fol: No Subjective Patient reports: No new complaints Review of Systems: HEENT:Normal, CVS:Normal, RESPIRATORY:Normal, GI:Normal, :Normal, MSK:Normal, NEURO:Normal Objective vital signs Vital Sign Date Time Temp Pulse Resp B/P (MAP) Pulse Ox O2 Delivery O2 Flow Rate FiO2 08/05/24 09:19 98.3 79 14 111/69 (83) 96 98.3 08/05/24 08:11 Room Air* 0 21 Total Intake and Output 08/04/24 08/04/24 08/05/24 15:00 23:00 07:00 Intake Total 308 ml 500 ml 1200 ml Balance 308 ml 500 ml 1200 ml medications Current Medications Medications Dose Ordered Sig/Den Route Start Time Stop Time Status Last Admin Dose Admin Acetaminophen/ Hydrocodone Bitart 1 tab Q4HP PRN PO 08/02/24 16:30 Acetaminophen 650 mg Q6HP PRN PO 08/02/24 16:30 Morphine Sulfate 2 mg Q4HPRN PRN IV 08/02/24 16:30 Nitroglycerin 0.4 mg Q5MINP PRN SL 08/02/24 16:30 Morphine Sulfate 2 mg Q30M PRN IV 08/02/24 16:30 Metronidazole 100 ml @ 100 mls/hr Q8HR@0200,1000,1800 IV 08/02/24 18:00 08/05/24 09:35 100 MLS/HR Sodium Chloride 1,000 ml @ 100 mls/hr Q10H IV 08/03/24 12:00 08/05/24 04:08 100 MLS/HR Saccharomyces Boulardii 250 mg DAILY PO 08/04/24 10:00 08/05/24 09:35 250 MG Fluoxetine HCl 20 mg DAILY PO 08/05/24 10:00 08/05/24 09:35 20 MG Vancomycin HCl 125 mg QID PO 08/04/24 18:00 08/05/24 05:31 125 MG Examination: GENERAL:Normal, HEENT:Normal, NECK:Normal, LUNGS:Normal, CVS:Normal, ABDOMEN:Normal, MSK:Normal, SKIN:Normal, NEURO:Normal, :Normal laboratory and microbiology Laboratory Tests 08/05/24 06:43 08/04/24 05:04 Test 08/04/24 05:04 Range/Units Serum Glucose 102 74-106 mg/dL Microbiology Date/Time Source Procedure Growth Status 08/03/24 13:30 Stool Stool Culture - Preliminary Resulted 08/03/24 13:30 Stool Shiga Toxin I & II - Final Resulted 08/03/24 13:30 Stool Clostridium difficile Toxin Assay - Final Resulted Problem List/Assessment/Plan Problem List/Assessment/Plan * C diff coliitis: vanc, flagyl, florastor * leukopenia: repeat * depression * History of stage IV lung cancer: chemo med on hold * Obesity. * Status post left foot surgery. advance care planning- full code- time spent 18 mins Plan discussed with: Patient, Spouse My Orders My Orders Orders - OSWALDO IRIZARRY MD Procedure Category Date Status Time Fluoxetine Capsule PHA 08/05/24 In Process (Prozac Capsule) 10:00 Discontinue Tele POLINA 08/04/24 In Process 10:57 Transfer Orders XFER 08/04/24 Transmitted 10:57 Date of Service: August 05, 2024 Billing Provider: OSWALDO IRIZARRY MD Common Visit Codes: [id number] INP/OBS CARE(HIGH) OSWALDO IRIZARRY MD August 05, 2024 10:13
[2024-08-05] MEDS: SODIUM CHLORIDE 0.9% 1,000 ML IV SCH (10:38)
[2024-08-05 12:58] VITALS: BP 137/74; PULSE 86; RESP 16; TEMP 98; O2SAT 95
[2024-08-05] MEDS: metroNIDAZOLE 500 MG TAB PO SCH (14:12)
[2024-08-05 16:43] VITALS: BP 126/75; PULSE 87; RESP 16; TEMP 98.1; O2SAT 96
[2024-08-05 21:00] VITALS: BP 126/67; PULSE 87; RESP 17; TEMP 98; O2SAT 97
[2024-08-06 05:00] VITALS: BP 133/79; PULSE 79; RESP 17; TEMP 98.3; O2SAT 96
[2024-08-06 06:11] LABS: Anion Gap 10 (5-15); Carbon Dioxide 22 mmol/L (20-31); Potassium 3.8 mmol/L (3.5-5.1); Sodium 140 mmol/L (136-145)
[2024-08-06 06:12] LABS: Calcium 8.9 mg/dL (8.7-10.4)
[2024-08-06 06:17] LABS: Glucose 101 mg/dL (74-106)
[2024-08-06 06:21] LABS: BUN/Creatinine Ratio 7.8 (10.0-20.0); Blood Urea Nitrogen < 5 mg/dL (9-23); Chloride 108 mmol/L (98-107)
[2024-08-06 06:42] LABS: Hemoglobin 12.2 g/dL (12.2-16.2)
[2024-08-06 06:44] LABS: Hematocrit 35.2 % (36.0-46.0); Mean Corpuscular Hemoglobin 31.6 pg (28.0-32.0); Mean Corpuscular Hgb Conc. 34.6 g/dL (32.0-36.0); Mean Corpuscular Volume 91.5 fL (80.0-100.0); Platelet Count (auto) 147 10^3/uL (140-450); Red Blood Cells 3.85 10^6/uL (4.0-5.20)
[2024-08-06 07:21] LABS: White Blood Cell 1.8 10^3/uL (4.4-10.8)
[2024-08-06 07:22] LABS: Band Neutrophils % (manual) 0; Basophils % (manual) 0 (0.0-2.0); Blast Cells 0; Metamyelocytes % 0; Myelocytes % 0; Promyelocytes % 0; Reactive Lymphocytes 0
[2024-08-06 09:00] VITALS: BP 135/77; PULSE 84; RESP 16; TEMP 97.7; O2SAT 96
[2024-08-06 10:47] LABS: Eosinophils % (manual) 5 (0-7); Lymphocytes % (manual) 12 (10.0-50.0); Monocytes % (manual) 11 (0-12); Platelet Estimate Adequate
[2024-08-06 13:00] VITALS: BP 127/76; PULSE 84; RESP 16; TEMP 98.5; O2SAT 96
[2024-08-06] MEDS ORDERED: SACC250C PO (15:59)
[2024-08-06] MEDS ORDERED: VANC125C3 PO (15:59)
[2024-08-06 16:03] VITALS: TEMP 36.9
--- NOTE | 2024-08-06 17:51 | DVHDS2 ---
Discharge Summary Date of Admission August 02, 2024 at 16:24 Date of Discharge: August 06, 2024 Labs/Diagnostic Data: Laboratory Results Test 08/06/24 04:49 08/04/24 06:48 08/04/24 05:04 08/03/24 04:55 White Blood Count 1.8 10^3/uL (4.4-10.8) Red Blood Count 3.85 10^6/uL (4.0-5.20) Hemoglobin 12.2 g/dL (12.2-16.2) Hematocrit 35.2 % (36.0-46.0) Mean Corpuscular Volume 91.5 fL (80.0-100.0) Mean Corpuscular Hemoglobin 31.6 pg (28.0-32.0) Mean Corpuscular Hemoglobin Concent 34.6 g/dL (32.0-36.0) Red Cell Distribution Width 14.0 % (11.8-14.3) Platelet Count 147 10^3/uL (140-450) Mean Platelet Volume 9.1 fL (6.9-10.8) Neutrophils (%) (Auto) % (37.0-80.0) Lymphocytes (%) (Auto) % (10.0-50.0) Monocytes (%) (Auto) % (0.0-12.0) Basophils (%) (Auto) % (0.0-2.0) Neutrophils # (Auto) 10 ^3/uL (1.6-8.6) Lymphocytes # (Auto) 10 ^3/uL (0.4-5.4) Monocytes # (Auto) 10 ^3/uL (0-1.3) Differential Total Cells Counted 100.0 (100) Neutrophils % (Manual) 72 (37.0-80.0) Band Neutrophils % (Manual) 0 Lymphocytes % (Manual) 12 (10.0-50.0) Monocytes % (Manual) 11 (0-12) Eosinophils % (Manual) 5 (0-7) Basophils % (Manual) 0 (0.0-2.0) Metamyelocytes % (manual) 0 Myelocytes % (Manual) 0 Promyelocytes % (Manual) 0 Blast Cells % (Manual) 0 Reactive Lymphocytes 0 Platelet Estimate Adequate Sodium Level 140 mmol/L (136-145) Potassium Level 3.8 mmol/L (3.5-5.1) Chloride Level 108 mmol/L (98-107) Carbon Dioxide Level 22 mmol/L (20-31) Anion Gap 10 (5-15) Blood Urea Nitrogen < 5 mg/dL (9-23) Creatinine 0.64 mg/dL (0.550-1.02) Glomerular Filtration Rate Calc 97 mL/min (>90) BUN/Creatinine Ratio 7.8 (10.0-20.0) Serum Glucose 101 mg/dL (74-106) Calcium Level 8.9 mg/dL (8.7-10.4) Stool for White Cells Many Eosinophils (%) (Auto) 6.5 % (0.0-7.0) Eosinophils # (Auto) 0.1 10 ^3/uL (0-0.8) Basophils # (Auto) 0 10 ^3/uL (0-0.2) Nucleated Red Blood Cells 0.2 % Prothrombin Time 10.9 sec (9.3-11.8) Prothrombin Time INR 1.03 (0.9-1.15) Activated Partial Thromboplast Time 30.8 SEC (24.5-34.5) Magnesium Level 2.1 mg/dL (1.6-2.6) Total Bilirubin 1.1 mg/dL (0.2-1.0) Aspartate Amino Transferase (AST) 11 U/L (13-40) Alanine Aminotransferase (ALT) < 9 U/L (7-40) Alkaline Phosphatase 72 U/L (46-116) Total Protein 6.2 g/dL (5.7-8.2) Albumin 4.0 g/dL (3.2-4.8) Test 08/02/24 13:16 Urine Color Yellow (Yellow) Urine Clarity Turbid (Clear) Urine pH 5.0 (5.0-9.0) Urine Specific [place] 1.029 (1.001-1.035) Urine Protein Trace (Negative) Urine Ketones Trace (Negative) Urine Blood 1+ /uL (Negative) Urine Nitrite Negative (Negative) Urine Bilirubin Negative (Negative) Urine Urobilinogen 2 mg/dL (Negative) Urine Leukocyte Esterase 1+ /uL (Negative) Urine RBC 1 /hpf (0 - 4) Urine Microscopic WBC 6 /HPF (0-5) Urine Squamous Epithelial Cells Mod /hpf (<5) Urine Calcium Oxalate Crystals Many (None Seen) Urine Bacteria None seen /hpf (None Seen) Urine Hyaline Casts Few /lpf (0 - 2) Urine Mucus Few (None Seen) Urine Glucose Normal mg/dL (Normal) Other Laboratory Tests 08/06/24 04:49 Brief Hx & Hospital Course: The patient is a 69-year-old lady who came in with history of increasing diarrhea that has been going on for several weeks. More recently, however, the patient has noticed blood in the stool. She denies any abdominal pain. No history of fever. No nausea or vomiting. No dizziness or syncope. Responded to IVF, and colitis with oral vanco and flagyl, seen by GI and no colonoscopy recommended She did well and able to tolerate food and diet. Condition at Discharge: Good Final Diagnosis/Problems List C diff colitis Discharge Disposition: Home Discharge Instruct/Medications Diet: Regular Activity: No Restrictions, As Tolerated Follow Up/Referral: PCP in 7 days Medications: vancomycin oral Discharge Statement: "Patient was advised to return to the ER or call 911 if any headaches, dizziness, shortness of breath, chest pain, abdominal pain, bleeding, fevers, or worsening of medical condition. Patient was counseled about treatment plan, medications, possible side effects, patientverbalized understanding. All questions were answered to the best of my ability. This discharge took greater then 30 minutes in planning, reviewing documentation, counseling the patient, and discussing with other team members." ASSESSMENT ASSESSMENT Assessment C diff colitis Date of Service: August 06, 2024 Billing Provider: DEE SORTO MD Common Visit Codes: 37901-UKQ/OBS DISCH DAY >30min DEE SORTO MD August 06, 2024 17:51
--- NOTE | 2024-08-06 22:36 | DVHPN2 ---
Progress Note - Dictate Date Seen: August 06, 2024 (Late entry Time of visit 4 p.m.) Medical Necessity Reason Pt with a Central, PICC or Fol: No Subjective No new complaints, continued loose bowel movements but rectal bleeding has resolved Her stool for C diff came back positive and patient has been started on oral vancomycin and probiotics patient is tolerating soft mechanical diet Patient stated she stopped her chemotherapy in May after her ankle surgery, she may have been on antibiotics at that time Because of ongoing diarrhea oncologist had referred her to addiction social worker Dr. Ornelas However because of rectal bleeding the patient presented to the ER Patient was diagnosed with a precancerous polyp apparently in the cecum by Dr Ornelas in [id number] Patient underwent resection of the cecum and possible 2 inches of her small bowel and colon in [address] Novak She has not had a colonoscopy since then vital signs Vital Sign Date Time Temp Pulse Resp B/P (MAP) Pulse Ox O2 Delivery O2 Flow Rate FiO2 08/06/24 16:03 36.9 08/06/24 13:00 84 16 127/76 (93) 96 08/06/24 07:45 Room Air* 0 21 Total Intake and Output 08/05/24 08/05/24 08/06/24 15:00 23:00 07:00 Intake Total 1466 ml 800 ml Balance 1466 ml 800 ml objective GENERAL: The patient is awake, alert. No acute distress VITAL SIGNS: Temperature of 98.7, pulse 90 per minute, blood pressure 131/66. HEENT: Pupils equal and react to light, extraocular movements intact NECK: There is no JVD. No pedal edema. LUNGS: Equal bilaterally. No added sounds. CARDIOVASCULAR SYSTEM: S1 and S2 is regular without murmurs. ABDOMEN: Soft. There is no organomegaly. NEUROLOGIC: Nonfocal. laboratory and microbiology Laboratory Tests 08/06/24 04:49 Test 08/06/24 04:49 Range/Units Serum Glucose 101 74-106 mg/dL Problems(with codes): (1) C. difficile diarrhea (2) Adenomatous polyp of cecum (3) Chronic pain (4) Metastatic cancer Prognosis Plan Advance to regular diet if tolerated Continue vancomycin 125 mg p.o. q.6 hours Continue Florastor Yogurt with her meals Discharge planning is in progress Outpatient follow up with GI to arrange colonoscopy after her C diff clears Dietary Evaluation Review Comments: Encourage and monitor PO intake to meet 75% of her needs. offer oral supplments Ensure Enlive BID Expected Outcomes/Goals: maintain Wt, Improving nutrition status Plan discussed with: Patient SADIQ BOONE MD August 06, 2024 22:36
== END 2024-08-06 16:30 | disposition home or self-care (01) | DRG 373 ==
LOC: ER 13:11 → OVERFLOW 16:24 → TELE-EAST 08-03 23:34 → TELE-CENTR 08-04 16:21 → CENTRAL 08-04 18:31
PROVIDERS: ADMIT Hospitalist; ATTEND Hospitalist
DX: A04.72 Enterocolitis due to Clostridium difficile, not specified as recurrent (principal); E66.9 Obesity, unspecified; F32.A Depression, unspecified; G89.29 Other chronic pain; D72.819 Decreased white blood cell count, unspecified; E78.5 Hyperlipidemia, unspecified; Z85.118 Personal history of other malignant neoplasm of bronchus and lung; Z68.28 Body mass index [BMI] 28.0-28.9, adult; Z87.891 Personal history of nicotine dependence
CPT/HCPCS: 36415; 71045; 74176; 80048; 80053; 81001; 83735; 85007; 85025; 85027; 85048; 85610; 85730; 87045; 87427; 87493; 93971; 96365; 96368; 99291; G0378; J1956; J3490

== ENCOUNTER → 2024-08-02 | Outpatient (CLI) | payer MEDICAID ==
[~2024-08-02] MED LIST: FLUO1TAB12 PO
[2024-08-02 07:12] LABS: Basophils # (auto) 0 10 ^3/uL (0-0.2); Basophils % (auto) 0.8 % (0.0-2.0); Eosinophils # (auto) 0.1 10 ^3/uL (0-0.8); Eosinophils % (auto) 3.6 % (0.0-7.0); Hematocrit 39.8 % (36.0-46.0); Hemoglobin 13.4 g/dL (12.2-16.2); Lymphocytes # (auto) 0.3 10 ^3/uL (0.4-5.4); Lymphocytes % (auto) 10.9 % (10.0-50.0); Mean Corpuscular Hemoglobin 31.2 pg (28.0-32.0); Mean Corpuscular Hgb Conc. 33.8 g/dL (32.0-36.0); Mean Corpuscular Volume 92.2 fL (80.0-100.0); Monocytes # (auto) 0.3 10 ^3/uL (0-1.3); Neutrophils # (auto) 2.1 10 ^3/uL (1.6-8.6); Neutrophils % (auto) 73.7 % (37.0-80.0); Nucleated Red Blood Cells % 0.1 %; Platelet Count (auto) 186 10^3/uL (140-450); Red Blood Cells 4.31 10^6/uL (4.0-5.20); Red Cell Distribution Width 14.1 % (11.8-14.3); White Blood Cell 2.8 10^3/uL (4.4-10.8)
[2024-08-02 09:15] LABS: Alanine Aminotransferase 10 U/L (7-40); Alkaline Phosphatase 84 U/L (46-116); Anion Gap 11 (5-15); BUN/Creatinine Ratio 15.8 (10.0-20.0); Blood Urea Nitrogen 12 mg/dL (9-23); Calcium 10.2 mg/dL (8.7-10.4); Carbon Dioxide 21 mmol/L (20-31); Chloride 106 mmol/L (98-107); Potassium 4.2 mmol/L (3.5-5.1); Sodium 138 mmol/L (136-145)
[2024-08-02 09:16] LABS: Total Protein 6.8 g/dL (5.7-8.2)
[2024-08-02 09:17] LABS: Albumin 4.4 g/dL (3.2-4.8); Bilirubin, Total 1.1 mg/dL (0.2-1.0)
[2024-08-02 09:19] LABS: Aspartate Aminotransferase 11 U/L (13-40); Glucose 107 mg/dL (74-106)
== END | disposition home or self-care (01) ==
LOC: LAB 06:56
PROVIDERS: ATTEND Student in an Organized Health Care Education/Training Program
DX: C34.11 Malignant neoplasm of upper lobe, right bronchus or lung (principal); G89.3 Neoplasm related pain (acute) (chronic)
CPT/HCPCS: 36415; 80053; 85025

== ENCOUNTER 2024-09-01 09:26 | Outpatient (CLI) | payer MEDICAID ==
[~2024-09-01 09:26] MED LIST changes: +SACC250C PO; +VANC125C3 PO
== END 2024-09-01 17:00 | disposition home or self-care (01) ==
LOC: LAB 09:26
PROVIDERS: ATTEND Internal Medicine Gastroenterology
DX: Z00.01 Encounter for general adult medical examination with abnormal findings (principal)
CPT/HCPCS: 87493

== ENCOUNTER → 2024-10-01 | Outpatient (CLI) | payer MEDICAID ==
[2024-10-01 08:47] LABS: Hematocrit 38.6 % (36.0-46.0); Hemoglobin 13.2 g/dL (12.2-16.2); Mean Corpuscular Hemoglobin 31.4 pg (28.0-32.0); Mean Corpuscular Volume 91.5 fL (80.0-100.0); Nucleated Red Blood Cells % 0.1 %
[2024-10-01 09:18] LABS: Albumin 4.0 g/dL (3.2-4.8); Anion Gap 10 (5-15); BUN/Creatinine Ratio 12.2 (10.0-20.0); Bilirubin, Total 0.6 mg/dL (0.2-1.0); Calcium 9.3 mg/dL (8.7-10.4); Carbon Dioxide 25 mmol/L (20-31); Glucose 100 mg/dL (74-106); Sodium 142 mmol/L (136-145); Total Protein 6.3 g/dL (5.7-8.2)
[2024-10-01 09:25] LABS: Alanine Aminotransferase 41 U/L (7-40); Alkaline Phosphatase 131 U/L (46-116); Blood Urea Nitrogen 9 mg/dL (9-23); Chloride 107 mmol/L (98-107); Potassium 3.2 mmol/L (3.5-5.1)
[2024-10-01 10:39] LABS: Free T3 3.79 pg/mL (2.3-4.2)
[2024-10-01 10:41] LABS: Free T4 (Free Thyroxine) 1.24 ng/dL (0.89-1.76)
[2024-10-01 10:49] LABS: Thyroid Stimulating Hormone 1.07 uIU/mL (0.55-4.78)
== END | disposition home or self-care (01) ==
LOC: LAB 06:43
PROVIDERS: ATTEND Student in an Organized Health Care Education/Training Program
DX: C34.11 Malignant neoplasm of upper lobe, right bronchus or lung (principal); G89.3 Neoplasm related pain (acute) (chronic); R19.7 Diarrhea, unspecified
CPT/HCPCS: 36415; 80053; 83615; 84439; 84443; 84481; 85025

== ENCOUNTER 2024-11-29 06:37 | Outpatient (CLI) | payer MEDICAID ==
[2024-11-29 07:06] LABS: Hematocrit 40.1 % (36.0-46.0); Hemoglobin 13.7 g/dL (12.2-16.2); Mean Corpuscular Hemoglobin 30.9 pg (28.0-32.0); Mean Corpuscular Volume 90.3 fL (80.0-100.0); Nucleated Red Blood Cells % 0.0 %
[2024-11-29 07:32] LABS: Alanine Aminotransferase 10 U/L (7-40); Albumin 4.3 g/dL (3.2-4.8); Anion Gap 11 (5-15); BUN/Creatinine Ratio 16.7 (10.0-20.0); Bilirubin, Total 0.8 mg/dL (0.2-1.0); Blood Urea Nitrogen 12 mg/dL (9-23); Calcium 9.3 mg/dL (8.7-10.4); Carbon Dioxide 23 mmol/L (20-31); Chloride 107 mmol/L (98-107); Glucose 96 mg/dL (74-106); Potassium 4.4 mmol/L (3.5-5.1); Sodium 141 mmol/L (136-145); Total Protein 7.1 g/dL (5.7-8.2)
[2024-11-29 07:33] LABS: Alkaline Phosphatase 132 U/L (46-116)
[2024-11-29 07:35] LABS: Thyroid Stimulating Hormone 1.01 uIU/mL (0.55-4.78)
== END 2024-11-29 17:00 | disposition home or self-care (01) ==
LOC: LAB 06:37
PROVIDERS: ATTEND Internal Medicine
DX: C34.11 Malignant neoplasm of upper lobe, right bronchus or lung (principal); G89.3 Neoplasm related pain (acute) (chronic); R19.7 Diarrhea, unspecified
CPT/HCPCS: 36415; 80053; 83615; 84436; 84443; 84481; 85025

== ENCOUNTER 2024-12-29 07:42 | Outpatient (CLI) | payer MEDICAID ==
[2024-12-29 07:58] LABS: Hematocrit 37.5 % (36.0-46.0); Hemoglobin 12.6 g/dL (12.2-16.2); Mean Corpuscular Hemoglobin 29.9 pg (28.0-32.0); Mean Corpuscular Volume 89.4 fL (80.0-100.0); Nucleated Red Blood Cells % 0.1 %
[2024-12-29 08:19] LABS: Albumin 4.2 g/dL (3.2-4.8); Anion Gap 9 (5-15); BUN/Creatinine Ratio 9.5 (10.0-20.0); Blood Urea Nitrogen 9 mg/dL (9-23); Calcium 8.9 mg/dL (8.7-10.4); Carbon Dioxide 27 mmol/L (20-31); Chloride 104 mmol/L (98-107); Glucose 95 mg/dL (74-106); Potassium 3.7 mmol/L (3.5-5.1); Sodium 140 mmol/L (136-145); Total Protein 6.8 g/dL (5.7-8.2)
[2024-12-29 08:20] LABS: Bilirubin, Total 0.6 mg/dL (0.2-1.0)
[2024-12-29 08:22] LABS: Alanine Aminotransferase 69 U/L (7-40); Alkaline Phosphatase 211 U/L (46-116)
== END 2024-12-29 17:00 | disposition home or self-care (01) ==
LOC: LAB 07:42
PROVIDERS: ATTEND Student in an Organized Health Care Education/Training Program
DX: C34.11 Malignant neoplasm of upper lobe, right bronchus or lung (principal); G89.3 Neoplasm related pain (acute) (chronic); R19.7 Diarrhea, unspecified; C79.51 Secondary malignant neoplasm of bone
CPT/HCPCS: 36415; 80053; 83615; 85025